=== PATIENT | male | born 1950 | race Caucasian/White ===

== ENCOUNTER 2024-07-20 01:54 | Outpatient (CLI) | payer OTHER, SELFPAY ==
[2024-07-20] MEDS: Inhaler, Assist Device 1 EACH MC (11:23)
[2024-07-20] MEDS: Levalbuterol HFA 15 GM INH 4 PUFF IH (11:23)
--- NOTE | 2024-07-20 12:01 | PFT_ITS ---
Date of service: 07/20/24 Time of Service: 10:02 Pulmonary Function Test Result Requesting Provider [facility] pulmonary Indications: COPD, bronchiectasis, dyspnea on exertion, recently increased cough Spirometry was done on maintenance medications of Dulera and Spiriva with uncertain compliance. Interpretation Spirometry: Spirometry pre and postbronchodilator showed: 1. Severe airway obstruction 2. Markedly positive response to bronchodilator 3. [employer] comments indicated a good patient effort. 4. The test met [place] [employer] standards of spirometry. 5. Because of uncertain compliance of the patient with his inhaled medications, it is also uncertain whether his positive response to bronchodilator merely reflects suboptimal compliance. Clinical correlation is recommended. Note that he was vague in his history during my office visit with him yesterday. Lung Volumes: Patient was unable to do lung volume studies because of claustrophobia with the plethysmographic glass box. However, postbronchodilator FVC and SVC were normal at 90 to 97%. Diffusion Capacity: Moderately decreased DLCO, which did not improve when adjusted for lung volumes. Clinical and radiographic correlation is recommended. Impression Severe COPD, with an uncontrolled airway reactivity component. Unable to do lung volume studies due to claustrophobia. Moderate gas exchange abnormality which may be independent of the patient's COPD. Radiographic correlation is recommended.
== END 2024-07-20 01:55 | disposition home or self-care (01) ==
LOC: RT 01:58
PROVIDERS: Visit Provider Internal Medicine
DX: J44.9 Chronic obstructive pulmonary disease, unspecified (principal)
CPT/HCPCS: 00123; 94060; 94729